=== PATIENT | female | born 1965 | race Hispanic/Latino ===

== ENCOUNTER → 2022-08-03 | Outpatient (CLI) | payer OTHER | END | disposition home or self-care (01) | LOC: RAH 11:04 | PROVIDERS: ATTEND Family Medicine | DX: M79.642 Pain in left hand (principal) | CPT/HCPCS: 73110; 73130 ==

== ENCOUNTER → 2023-11-15 | Outpatient (CLI) | payer OTHER | END | disposition home or self-care (01) | LOC: OIH 14:16 | PROVIDERS: ATTEND Family Medicine | DX: Z13.6 Encounter for screening for cardiovascular disorders (principal) | CPT/HCPCS: 75571 ==